=== PATIENT | female | born 1985 | race American Indian/Alaskan Native ===

== ENCOUNTER 2018-04-18 21:15 | Inpatient (IN) | payer BC ==
[2018-04-18 21:53] VITALS: BMI 33.5
[2018-04-18] MEDS ORDERED: Lactated Ringer's 1,000 ML IV ONE (21:53)
[2018-04-18] MEDS ORDERED: Lactated Ringer's 1,000 ML IV SCH (22:00)
--- NOTE | 2018-04-18 22:12 | OBHP ---
Datetime: 04/18/2018 21:55 IP Adm Impression: Term, intrauterine ; Active labor; Ruptured Membranes IP Admit Plan: Admit to unit; Initiate labor protocol Admit Comment, IP Provider: 32 y.o. , LMP 08/15/17, revised ELSA 04/19/18, EGA 39w 6d c/o ROM 2030 hours and onset of Ctx "at the same time"; pain scale 8/10, now coming every 2-3 minutes. (+) AF M; denies VB. care: Dr. Pichardo - sickle cell trait; anemia. 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 Denies h/o STIs, myoma, abnoarmal Pap. (+) ov cysts "age 16-st[age]" PMH: asthma since "very young". Never intubated. Triggered by cold weather/winter. PSH: denies NKDA Meds: PNV - QD; albuterol inhaler, PRN Soc Hx: denies tobacco, illicit drug or EtOH use. x 1 1/2 yrs; together x 18 yrs. 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 Fam Hx: Mother alive 53 - heart disease. Father alive 57 - no med issues. MGM and PGM - breast CA P.E.: as above. WD in pain with contractions. Awake, alert, oriented to time, person and place. Pl easant and cooperative Assessment: 32 y.o. P1, 39w 6d - SROM in active labor. Desisres epidural. GBS (-). Category 1 tra cing. Clinically stable. Plan: 1) Admit 2) NPO 3) IVFs 4) Continuous EFM 5) Admission labs 6) Epidural 7) Anticipate vaginal delivery - as per, and discussed with, Dr. Pichardo Pelvic Type - PN: Adequate Extremities - PN: Normal Abdomen - PN: Normal Back - PN: Normal Breast - PN: Not Done Lungs - PN: Normal Heart - PN: Normal Neurologic - PN: Normal HEENT - PN: Normal General - PN: Normal Presentation-Admit: Vertex FHR - Baseline A Provider: 150 Contraction Comments Provider: 2 minutes Comments, ACOG Physical Exam: Abdomen: Gravid. Firm with contractions Perineum: wet; nitrazine(+) All other systems reviewed and are negative Gestation - Est Wks by US: 39w 6d EGA AdmitDate IP: 39.6 Vital Signs Provider: Reviewed; Within Normal Limits IP Indication for Induction: Not Applicable IP Chief Complaint: Uterine contractions; Suspected ruptured membranes NICHD Variability Prov Fetus A: Moderate 6-25bpm NICHD Accel Fetus A IP Provider: [id number] FHR Category Provider Fetus A: Category I NICHD Decel Fetus A IP Provider: None Dilatation, Provider: 6 Effacement, Provider: 80 Station, Provider: 0 Genitourinary Exam: Normal DTRs - PN: Normal
[2018-04-18 22:14] LABS: BASO # 0.1 K/uL (0.0-0.2); BASO % 0.4 % (0.0-2.0); EOS # 0.1 K/uL (0.0-0.7); EOS % 0.5 % (0.0-4.0); HEMOGLOBIN 11.3 g/dL (11.0-16.0); LYMPH # 2.8 K/uL (1.0-4.3); LYMPH % 21.7 % (20.0-40.0); MEAN CORPUSCULAR HEMOGLOBIN 32.3 pg (27.0-31.0); MEAN CORPUSCULAR HGB CONC 33.7 g/dL (33.0-37.0); MEAN PLATELET VOLUME 9.3 fL (7.2-11.7); MONO # 0.7 K/uL (0.0-0.8); MONO % 5.8 % (0.0-10.0); NEUT # 9.2 K/uL (1.8-7.0); NEUT % 71.6 % (50.0-75.0); NRBC % 0.1 % (0.0-2.0); RBC 3.51 Mil/uL (3.80-5.20); WHITE BLOOD COUNT 12.8 K/uL (4.8-10.8)
[2018-04-18] MEDS ORDERED: Oxytocin 20 units in LR 2,000 ML IV ONE (22:21)
[2018-04-18 22:24] LABS: SQUAMOUS EPITHIAL 29 /hpf (0-5); URINE BACTERIA RARE (<OCC); URINE BILIRUBIN NEGATIVE (NEGATIVE); URINE BLOOD 3+ (NEGATIVE); URINE CLARITY Turbid (Clear); URINE COLOR Amber (YELLOW); URINE GLUCOSE (UA) NORMAL (Normal); URINE LEUKOCYTE ESTERASE 2+ Leu/uL (Negative); URINE PROTEIN 1+ mg/dL (NEGATIVE)
[2018-04-18] MEDS ORDERED: Bupivacaine HCl/FentaNYL Cit 100 ML EPI ONE (22:30)
[2018-04-18 22:35] LABS: ALBUMIN 3.6 g/dL (3.5-5.0); CALCIUM 8.9 mg/dl (8.6-10.4); GFR AFRICAN-AMERICAN > 60; GFR NON-AFRICAN AMERICAN > 60
[2018-04-18 22:40] LABS: ALT/SGPT 14 U/L (9-52); AST/SGOT 32 U/L (14-36); BLOOD UREA NITROGEN 8 mg/dL (7-17)
[2018-04-18] MEDS ORDERED: Oxycodone/Acetaminophen 5/325 mg Tab PO PRN ×2 (23:05)
--- NOTE | 2018-04-18 23:22 | OBDS ---
DELIVERY PERSONNEL Delivery Doctor: Bashir Pichardo MD Policy Cancellation Clerk: Alicia Elizabeth RN MATERNAL INFORMATION Delivery Anesthesia: None Estimated Blood Loss (ml): 200 Placenta Cultured: Yes Provider Comments: pt was fully dilated and pushing, atraumatic, spontaneous of head followed by del justin of body. umbilcal cord clamped and cut. baby handed to mother with rn assistnace. cord blood c olelcted adn sent x 2. spotnenaoud delivery of intant placent with membrns. fundus firm. good hemost ias, intact perienum live male infant apgars 9,9 weight of 7lb 14 ounces ebl 200ml LABOR SUMMARY EDC: 04/19/2018 00:00 No. Babies in Womb: 1 Attempted: No Labor Anesthesia: None LABOR INFORMATION Onset of Labor: 04/18/2018 20:30 Complete Dilatation: 04/18/2018 22:30 Steroids Given: None MEMBRANES Membranes Rupture Method: Spontaneous Rupture of Membranes: 04/18/2018 20:30 Length of Rupture (hrs): 2.18 Amniotic Fluid Color: Clear Amniotic Fluid Amount: Small Amniotic Fluid Odor: None STAGES OF LABOR Stage 1 hrs: 2 Stage 1 min: 0 Stage 2 hrs: 0 Stage 2 min: 11 Stage 3 hrs: 0 Stage 3 min: 16 Total Time in Labor hrs: 2 Total Time in Labor min: 27 BABY A INFORMATION Delivery Date/Time: 04/18/2018 22:41 Method of Delivery: Vaginal Born in Route : No : N/A Forceps: N/A Vacuum Extraction: N/A Shoulder Dystocia : No SHOULDER DYSTOCIA BABY A Infant Delivery Date/Time: 04/18/2018 22:41 PRESENTATION/POSITION BABY A Presentation: Cephalic Cephalic Presentation: Vertex Vertex Position: Right Occipital Anterior Breech Presentation: N/A PLACENTA INFORMATION BABY A Placenta Delivery Time : 04/18/2018 22:57 Placenta Method of Delivery: Expressed Placenta Status: Delivered SCORES BABY A Heart Rate 1 min: >100 bpm Resp Effort 1 min: Good Cry Reflex Irritability 1 min: Cough or Sneeze or Pulls Away Muscle Tone 1 min: Active Motion Color 1 min: Body [place], Extremities Blue Resuscitation Effort 1 min: Tactile Stimulation SCORE 1 MIN: 9 Heart Rate 5 min: >100 bpm Resp Effort 5 min: Good Cry Reflex Irritability 5 min: Cough or Sneeze or Pulls Away Muscle Tone 5 min: Active Motion Color 5 min: Body [place], Extremities Blue Resuscitation Effort 5 min: N/A SCORE 5 MIN: 9 INFORMATION BABY A Gestational Age at Delivery: 39.6 Gestational Status: Term Infant Outcome : Liveborn Infant Condition : Stable Infant Sex: Male WEIGHT/LENGTH BABY A Infant Birthweight (gms): 3570 Weight (lb): 7 Infant Weight (oz): 14 Infant Length Inches: 20.00 Infant Length cms: 50.8 CORD INFORMATION BABY A No. Cord Vessels: 3 Nuchal Cord : N/A Cord Blood Taken: Yes Suction: Mouth; Nose ASSESSMENT BABY A Complications: None Physical Findings at Delivery: Within Normal Limits Infant Respirations: Appears Normal Refractory Repairer/ALS Called : No Infant Care By: Deirdre Escobar RN Transferred To: Remains with Mother
[2018-04-19 07:33] LABS: BASO % 0.2 % (0.0-2.0); EOS % 0.2 % (0.0-4.0); HEMOGLOBIN 10.3 g/dL (11.0-16.0); LYMPH % 13.1 % (20.0-40.0); MEAN CELL VOLUME 95.7 fL (81.0-99.0); MEAN CORPUSCULAR HGB CONC 34.5 g/dL (33.0-37.0); MEAN PLATELET VOLUME 8.8 fL (7.2-11.7); MONO # 0.8 K/uL (0.0-0.8); MONO % 5.3 % (0.0-10.0); NEUT # 12.5 K/uL (1.8-7.0); NEUT % 81.2 % (50.0-75.0); RBC 3.12 Mil/uL (3.80-5.20); RED CELL DISTRIBUTION WIDTH 12.8 % (11.5-14.5); WHITE BLOOD COUNT 15.4 K/uL (4.8-10.8)
[2018-04-19 09:02] VITALS: RESP 18
--- NOTE | 2018-04-19 10:16 | OBPPN ---
Datetime: 04/19/2018 10:12 PP Pain Prov: Within normal limits PP Nausea Prov: Denies PP Flatus Prov: Yes PP BM Prov: No PP Breasts Prov: Normal PP Heart Prov: Normal PP Lungs Prov: Normal PP Abdomen/Uterus Prov: Normal PP Lochia Prov: Normal PP Vulva/Perineum Prov: Normal PP CVA Tenderness Prov: Normal PP Extremities Prov: Normal PP C/S Incision Prov: Not Applicable PP Progress Prov: Normal PP Impression Prov: Normal progression PP Plan Prov: Continue present management PP Progress Note Prov: pt seen and examiend reprots pain controlled with medicaion. pt ambuating voi ding passing flatus, tolerted regular diet, denies any fever, chills, nasue, vomitnv, cp, sob. pt isb reat feedign denies any feeling of sadnes or depression. pt denies any lightheadnes,d izzyness. VSS PE GEN NAD AA ox 3 RESP: CTAB?l CVR: RRR, +S1/S2 ABD: soft, NT/ND, Fundus firm at level of umbilicis VE: minimal lochia, non foul smelling EXT: No calf tendnerss b/l, engaitve lavern's sign A/P s/p ppd #1 doign well am labs pain manamgnet encourage ambation and breast feeding Vital Signs Provider PP: Reviewed; Within Normal Limits
[2018-04-19 11:23] LABS: BASO % 0.1 % (0.0-2.0); EOS # 0.1 K/uL (0.0-0.7); EOS % 0.5 % (0.0-4.0); HEMOGLOBIN 10.2 g/dL (11.0-16.0); LYMPH # 2.1 K/uL (1.0-4.3); LYMPH % 12.9 % (20.0-40.0); MEAN CELL VOLUME 95.9 fL (81.0-99.0); MEAN CORPUSCULAR HEMOGLOBIN 33.3 pg (27.0-31.0); MEAN CORPUSCULAR HGB CONC 34.7 g/dL (33.0-37.0); MEAN PLATELET VOLUME 9.2 fL (7.2-11.7); MONO % 6.1 % (0.0-10.0); NEUT % 80.4 % (50.0-75.0); RBC 3.06 Mil/uL (3.80-5.20); WHITE BLOOD COUNT 16.2 K/uL (4.8-10.8)
[2018-04-19] MEDS: Multiple Vitamins Tab PO SCH (11:41)
[2018-04-19] MEDS ORDERED: guaiFENesin 200 mg/10 ml Syrup UD PO PRN (12:13)
[2018-04-19] MEDS ORDERED: ceFAZolin IV 2 gm in Dextrose 2 GM/50 ML BAG IVPB SCH (12:15)
[2018-04-19] MEDS ORDERED: Benzocaine/Menthol (Cepacol) Lozenge MT SCH (14:00)
[2018-04-19] MEDS ORDERED: Benzocaine/Menthol (Cepacol) Lozenge MT PRN (18:22)
--- NOTE | 2018-04-20 00:06 | OBDCSUM ---
Datetime: 04/20/2018 00:02 Discharged to, Provider: Home Follow up at, Provider: Dr Pichardo Disch Instr Activity: Normal activity Disch Instr Diet: Regular Discharge Instructions, Provider: Routine instructions given Discharge Diagnosis, Provider: Term Delivered Discharge Time: 04/20/2018 11:00 Follow up in weeks, Provider: 6 weeks Disch Referrals: None Contraception discussed, Prov: Yes Disch Activity Restrictions: No sexual activity; Nothing in vagina - [place], tampons, douche Discharge Comment, Provider: precaution ginve f/u pmd :re: bronchits Contraception after Delivery: Not Planning to Use
--- NOTE | 2018-04-20 00:07 | OBPPN ---
Datetime: 04/20/2018 00:01 PP Pain Prov: Within normal limits PP Nausea Prov: Denies PP Flatus Prov: Yes PP BM Prov: No PP Breasts Prov: Normal PP Heart Prov: Normal PP Lungs Prov: Normal PP Abdomen/Uterus Prov: Normal PP Lochia Prov: Normal PP Vulva/Perineum Prov: Normal PP CVA Tenderness Prov: Normal PP Extremities Prov: Normal PP C/S Incision Prov: Not Applicable PP Progress Prov: Normal PP Impression Prov: Normal progression PP Plan Prov: Continue present management; Antibiotic therapy PP Progress Note Prov: pt seen and examiend reprots pain controlled with medicaion. pt ambuating voi ding passing flatus, tolerted regular diet, denies any fever, chills, nasue, vomitnv, cp, sob. pt isb reat feedign denies any feeling of sadnes or depression. pt denies any lightheadnes,d izzyness. pt m[place]ott d cough with yellwo sputurm started on amoxicllin adn robitucsu adn feels better VSS PE GEN NAD AA ox 3 RESP: CTAB?l CVR: RRR, +S1/S2 ABD: soft, NT/ND, Fundus firm at level of umbilicis VE: minimal lochia, non foul smelling EXT: No calf tendnerss b/l, engaitve lavern's sign A/P s/p ppd #2 with bornchitis dc hoem rto 6 weeks f/u o/p wti pmd Vital Signs Provider PP: Reviewed; Within Normal Limits
[2018-04-20 07:51] LABS: BASO % 0.3 % (0.0-2.0); EOS # 0.2 K/uL (0.0-0.7); EOS % 1.7 % (0.0-4.0); HEMOGLOBIN 10.9 g/dL (11.0-16.0); LYMPH # 2.6 K/uL (1.0-4.3); LYMPH % 19.5 % (20.0-40.0); MEAN CORPUSCULAR HEMOGLOBIN 33.2 pg (27.0-31.0); MEAN CORPUSCULAR HGB CONC 34.6 g/dL (33.0-37.0); MEAN PLATELET VOLUME 8.9 fL (7.2-11.7); MONO # 0.9 K/uL (0.0-0.8); MONO % 7.1 % (0.0-10.0); NEUT # 9.4 K/uL (1.8-7.0); NEUT % 71.4 % (50.0-75.0); NRBC % 0.1 % (0.0-2.0); RBC 3.29 Mil/uL (3.80-5.20); WHITE BLOOD COUNT 13.2 K/uL (4.8-10.8)
[2018-04-20 10:24] VITALS: BP 120/79; PULSE 79; TEMP 97.8; O2SAT 98
[2018-04-20] MEDS: Multiple Vitamins Tab PO SCH (10:27)
== END 2018-04-20 13:00 | disposition home or self-care (01) | DRG 775 ==
LOC: C.EROB 21:15 → C.4D 21:30 → C.4M 04-19 01:50
PROVIDERS: ADMIT Obstetrics & Gynecology; ATTEND Obstetrics & Gynecology
PROC: 10E0XZZ Delivery of Products of Conception, External Approach (ICD-10-PCS; principal; 2018-04-18)
DX: O99.02 Anemia complicating childbirth (principal); D57.3 Sickle-cell trait; O99.52 Diseases of the respiratory system complicating childbirth; J45.909 Unspecified asthma, uncomplicated; Z3A.39 39 weeks gestation of pregnancy; Z37.0 Single live birth